=== PATIENT | female | born 1955 | race Two or more races ===

== ENCOUNTER 2017-09-06 10:36 | Outpatient (CLI) | payer OTHER ==
[~2017-09-06 10:36] MED LIST: DICLOZOR1 EACH; GLUMETZA1000 MG; NEURONTIN300 MG; VYTORIN 10-20 M1 TAB
== END 2017-09-06 10:42 | disposition home or self-care (01) ==
LOC: MAMO-SONO 10:36
DX: Z12.31 Encounter for screening mammogram for malignant neoplasm of breast (principal); Z87.898 Personal history of other specified conditions

== ENCOUNTER 2017-10-26 12:26 | Outpatient (CLI) | payer OTHER | END 2017-10-26 12:30 | disposition home or self-care (01) | LOC: RAD 12:26 | DX: D68.8 Other specified coagulation defects (principal); H25.9 Unspecified age-related cataract ==

== ENCOUNTER 2017-11-19 10:21 | Outpatient (CLI) | payer OTHER | END 2017-11-19 11:00 | disposition home or self-care (01) | LOC: NUCLEAR 10:21 | DX: M81.0 Age-related osteoporosis without current pathological fracture (principal) ==

== ENCOUNTER 2018-09-19 10:35 | Outpatient (CLI) | payer OTHER | END 2018-09-19 10:55 | disposition home or self-care (01) | LOC: MAMO-SONO 10:35 | DX: N61.0 Mastitis without abscess (principal); Z12.31 Encounter for screening mammogram for malignant neoplasm of breast ==

== ENCOUNTER → 2019-03-30 | Outpatient (CLI) | payer OTHER | END | disposition home or self-care (01) | LOC: RAD 16:32 | DX: J44.9 Chronic obstructive pulmonary disease, unspecified (principal); R10.84 Generalized abdominal pain ==

== ENCOUNTER 2019-09-20 09:25 | Outpatient (CLI) | payer OTHER | END 2019-09-20 09:40 | disposition home or self-care (01) | LOC: MAMO-SONO 09:25 | DX: Z12.31 Encounter for screening mammogram for malignant neoplasm of breast (principal); Z87.898 Personal history of other specified conditions; N60.11 Diffuse cystic mastopathy of right breast; N60.12 Diffuse cystic mastopathy of left breast ==

== ENCOUNTER 2020-01-23 11:33 | Outpatient (CLI) | payer OTHER | END 2020-01-23 11:35 | disposition home or self-care (01) | LOC: NUCLEAR 11:33 | PROVIDERS: ATTEND Obstetrics & Gynecology | DX: M81.0 Age-related osteoporosis without current pathological fracture (principal) ==

== ENCOUNTER 2020-02-14 11:22 | Outpatient (CLI) | payer OTHER | END 2020-02-14 11:30 | disposition home or self-care (01) | LOC: RAD 11:22 → MAMO-SONO 11:45 | PROVIDERS: ATTEND Internal Medicine Cardiovascular Disease | DX: M12.812 Other specific arthropathies, not elsewhere classified, left shoulder (principal); M12.811 Other specific arthropathies, not elsewhere classified, right shoulder ==

== ENCOUNTER → 2020-03-08 11:12 | Outpatient (CLI) | payer OTHER | END | disposition home or self-care (01) | LOC: EKG 11:12 | PROVIDERS: ATTEND Orthopaedic Surgery | DX: I10 Essential (primary) hypertension (principal) ==

== ENCOUNTER → 2020-03-08 | Outpatient (CLI) | payer OTHER | END | disposition home or self-care (01) | LOC: RAD 10:06 | PROVIDERS: ATTEND Orthopaedic Surgery | DX: R07.89 Other chest pain (principal); I10 Essential (primary) hypertension ==

== ENCOUNTER 2020-06-18 13:44 | Outpatient (CLI) | payer OTHER | END 2020-06-18 13:46 | disposition home or self-care (01) | LOC: RAD 13:44 | PROVIDERS: ATTEND Physical Medicine & Rehabilitation | DX: M75.122 Complete rotator cuff tear or rupture of left shoulder, not specified as traumatic (principal) ==

== ENCOUNTER 2020-07-16 07:48 | Outpatient (CLI) | payer OTHER | END 2020-07-16 07:50 | disposition home or self-care (01) | LOC: TOM 07:48 | PROVIDERS: ATTEND Obstetrics & Gynecology | DX: K57.90 Diverticulosis of intestine, part unspecified, without perforation or abscess without bleeding (principal); C54.1 Malignant neoplasm of endometrium; R10.2 Pelvic and perineal pain | CPT/HCPCS: 74177; Q9965 ==

== ENCOUNTER → 2020-07-23 | Outpatient (CLI) | payer OTHER | END | disposition home or self-care (01) | LOC: RAD 10:49 | DX: Z01.811 Encounter for preprocedural respiratory examination (principal) ==

== ENCOUNTER 2020-10-10 13:27 | Outpatient (CLI) | payer OTHER | END 2020-10-10 13:44 | disposition home or self-care (01) | LOC: MAMO-SONO 13:27 | PROVIDERS: ATTEND Obstetrics & Gynecology | DX: Z12.31 Encounter for screening mammogram for malignant neoplasm of breast (principal); Z87.898 Personal history of other specified conditions; N60.11 Diffuse cystic mastopathy of right breast; C54.0 Malignant neoplasm of isthmus uteri ==

== ENCOUNTER 2020-11-15 12:03 | Outpatient (CLI) | payer OTHER | END 2020-11-15 12:16 | disposition home or self-care (01) | LOC: SONOGRAMA 12:03 | PROVIDERS: ATTEND Surgery | DX: D24.2 Benign neoplasm of left breast (principal); N60.11 Diffuse cystic mastopathy of right breast; N60.12 Diffuse cystic mastopathy of left breast; R92.0 Mammographic microcalcification found on diagnostic imaging of breast ==

== ENCOUNTER 2021-07-23 07:51 | Outpatient (CLI) | payer OTHER | END 2021-07-23 08:00 | disposition home or self-care (01) | LOC: SONOGRAMA 07:51 | PROVIDERS: ATTEND Orthopaedic Surgery | DX: M75.121 Complete rotator cuff tear or rupture of right shoulder, not specified as traumatic (principal); M75.122 Complete rotator cuff tear or rupture of left shoulder, not specified as traumatic; M25.511 Pain in right shoulder; M25.512 Pain in left shoulder ==

== ENCOUNTER 2021-08-05 09:56 | Outpatient (CLI) | payer OTHER | END 2021-08-05 10:05 | disposition home or self-care (01) | LOC: MRI 09:56 | PROVIDERS: ATTEND Neuromusculoskeletal Medicine & OMM | DX: G25.0 Essential tremor (principal); R41.3 Other amnesia | CPT/HCPCS: 70551 ==

== ENCOUNTER 2021-10-30 10:20 | Outpatient (CLI) | payer OTHER | END 2021-10-30 10:33 | disposition home or self-care (01) | LOC: MAMO-SONO 10:20 | PROVIDERS: ATTEND Surgery | DX: N60.11 Diffuse cystic mastopathy of right breast (principal); N60.12 Diffuse cystic mastopathy of left breast ==

== ENCOUNTER → 2022-05-27 07:46 | Outpatient (CLI) | payer OTHER | END | disposition home or self-care (01) | LOC: LAB 07:46 | PROVIDERS: ATTEND Radiology Diagnostic Radiology | DX: C54.1 Malignant neoplasm of endometrium (principal) ==

== ENCOUNTER 2022-05-27 08:36 | Outpatient (CLI) | payer OTHER | END 2022-05-27 11:36 | disposition home or self-care (01) | LOC: TOM 08:36 | DX: C54.1 Malignant neoplasm of endometrium (principal) | CPT/HCPCS: 71260; 74177; Q9965 ==

== ENCOUNTER 2022-07-28 13:42 | Emergency (ER) | payer OTHER ==
[~2022-07-28] VITALS: Ht 154.9 cm; Wt 67.1 kg
== END 2022-07-28 20:13 | disposition home or self-care (01) ==
LOC: ER 13:42
DX: K52.9 Noninfective gastroenteritis and colitis, unspecified (principal)

== ENCOUNTER 2022-08-06 07:33 | Outpatient (CLI) | payer OTHER | END 2022-08-06 07:36 | disposition home or self-care (01) | LOC: NUCLEAR 07:33 | DX: C54.1 Malignant neoplasm of endometrium (principal) | CPT/HCPCS: 78816; A9552 ==

== ENCOUNTER 2022-11-02 09:17 | Outpatient (CLI) | payer OTHER | END 2022-11-02 09:31 | disposition home or self-care (01) | LOC: MAMO-SONO 09:17 | PROVIDERS: ATTEND Surgery | DX: N60.11 Diffuse cystic mastopathy of right breast (principal); N60.12 Diffuse cystic mastopathy of left breast ==

== ENCOUNTER → 2022-12-04 | Outpatient (CLI) | payer OTHER | END | disposition home or self-care (01) | LOC: TOM 08:51 | DX: C54.1 Malignant neoplasm of endometrium (principal) | CPT/HCPCS: 71260; 74177; Q9965 ==

== ENCOUNTER 2023-06-01 08:12 | Outpatient (CLI) | payer OTHER | END 2023-06-01 08:25 | disposition home or self-care (01) | LOC: TOM 08:12 | DX: C54.1 Malignant neoplasm of endometrium (principal) | CPT/HCPCS: 71260; 74177; Q9965 ==

== ENCOUNTER 2023-06-25 08:01 | Outpatient (CLI) | payer OTHER | END 2023-06-25 08:02 | disposition home or self-care (01) | LOC: NUCLEAR 08:01 | DX: C54.1 Malignant neoplasm of endometrium (principal) | CPT/HCPCS: 78815; A9552 ==

== ENCOUNTER 2023-10-20 13:09 | Outpatient (CLI) | payer OTHER | END 2023-10-20 13:11 | disposition home or self-care (01) | LOC: NUCLEAR 13:09 | PROVIDERS: ATTEND Internal Medicine Cardiovascular Disease | DX: M81.0 Age-related osteoporosis without current pathological fracture (principal); E55.9 Vitamin D deficiency, unspecified ==

== ENCOUNTER 2023-11-10 10:29 | Outpatient (CLI) | payer OTHER | END 2023-11-10 10:42 | disposition home or self-care (01) | LOC: MAMO-SONO 10:29 | PROVIDERS: ATTEND Surgery | DX: N60.11 Diffuse cystic mastopathy of right breast (principal); N60.12 Diffuse cystic mastopathy of left breast ==

== ENCOUNTER 2024-03-07 14:50 | Emergency (ER) | payer OTHER ==
[~2024-03-07] VITALS: Ht 154.9 cm; Wt 59.0 kg
[2024-03-07] MEDS ORDERED: 0.9 % SODIUM CHLORIDE 500 ML IV STA (18:07)
[2024-03-07 19:01] LABS: HEMATOCRIT 32.4 % (36.0-45.00); HEMOGLOBIN 11.5 g/dL (12.0-15.00); MEAN CELL VOLUME 90.2 fL (80.00-100.00); MEAN CORPUSCULAR HEMOGLOBIN 31.9 pg (27.00-32.0); MEAN CORPUSCULAR HGB CONC 35.4 g/dl (32.0-36.0); PLATELET COUNT 109 K/uL (150-450); RED BLOOD COUNT 3.59 M/uL (4.00-6.00); RED CELL DISTRIBUTION WIDTH 16.3 % (11.5-14.5)
[2024-03-07 19:20] LABS: PH,URINE 5.5 (5.0-8.0); URINE BILIRRUBIN Negative (NEGATIVE); URINE BLOOD Negative; URINE GLUCOSE Negative (NEGATIVE); URINE KETONE Negative (NEGATIVE); URINE LEUKOCYTE Negative; URINE NITRATE Negative; URINE UROBILINOGEN 0.2 E.U./dl
[2024-03-07 19:24] LABS: URINE BACTERIA 566.9 uL (0.0-1933); URINE CAST 1.98 uL (0.0-1.40); URINE EPITHELIAL CELLS 25.4 uL (0.0-38.8); URINE RBC 9.7 uL (0.0-20.8); URINE WBC 19.1 uL (0.0-23.2)
[2024-03-07 19:36] LABS: URINE COLOR DK YELLOW; URINE PROTEIN 100 (NEGATIVE)
[2024-03-07 19:37] LABS: URINE APPEARANCE CLEAR
[2024-03-07 19:56] LABS: ALBUMIN 3.3 gm/dL (3.4-5.0); BILIRUBIN TOTAL 0.31 mg/dL (0.3-1.2); CALCIUM 9.2 mg/dL (8.5-10.1); CREATININE SERUM 1.03 mg/dL (0.55-1.02); GFR 52.97; GLOBULINA 5.1 G/DL (2.4-3.5); POTASSIUM 3.47 mEq/L (3.5-5.1); TOTAL PROTEIN 8.4 gm/dL (6.4-8.2)
[2024-03-07] MEDS ORDERED: LEVOFLOXACIN750 MG PO (22:02)
== END 2024-03-07 22:36 | disposition home or self-care (01) ==
LOC: ER 14:51
PROVIDERS: General Practice
DX: R53.81 Other malaise (principal); R42 Dizziness and giddiness; I10 Essential (primary) hypertension; E11.9 Type 2 diabetes mellitus without complications; Z79.84 Long term (current) use of oral hypoglycemic drugs
CPT/HCPCS: 36415; 70450; 96365; 96366; 99284; J7042

== ENCOUNTER → 2024-03-09 11:57 | Outpatient (CLI) | payer OTHER ==
[~2024-03-09 11:57] MED LIST changes: +LEVOFLOXACIN750 MG PO
[2024-03-09 12:38] LABS: MEAN CELL VOLUME 90.3 fL (80.00-100.00); MEAN CORPUSCULAR HEMOGLOBIN 30.2 pg (27.00-32.0); MEAN CORPUSCULAR HGB CONC 33.5 g/dl (32.0-36.0); RED BLOOD COUNT 3.44 M/uL (4.00-6.00)
[2024-03-09 12:39] LABS: PLATELET COUNT 60 K/uL (150-450)
[2024-03-09 12:40] LABS: HEMOGLOBIN 10.4 g/dL (12.0-15.00)
== END | disposition home or self-care (01) ==
LOC: LAB 11:57
PROVIDERS: ATTEND General Practice
DX: D69.6 Thrombocytopenia, unspecified (principal)

== ENCOUNTER → 2024-03-10 12:58 | Outpatient (CLI) | payer OTHER ==
[2024-03-10 14:55] LABS: HEMOGLOBIN 10.7 g/dL (12.0-15.00); MEAN CELL VOLUME 91.2 fL (80.00-100.00); MEAN CORPUSCULAR HEMOGLOBIN 30.4 pg (27.00-32.0); MEAN CORPUSCULAR HGB CONC 33.4 g/dl (32.0-36.0); RED BLOOD COUNT 3.51 M/uL (4.00-6.00); RED CELL DISTRIBUTION WIDTH 15.9 % (11.5-14.5)
[2024-03-10 15:00] LABS: PLATELET COUNT 51 K/uL (150-450)
== END | disposition home or self-care (01) ==
LOC: LAB 12:58
PROVIDERS: ATTEND Emergency Medicine
DX: R42 Dizziness and giddiness (principal)

== ENCOUNTER 2024-08-29 08:34 | Outpatient (CLI) | payer OTHER | END 2024-08-29 08:35 | disposition home or self-care (01) | LOC: NUCLEAR 08:34 | DX: C54.1 Malignant neoplasm of endometrium (principal) | CPT/HCPCS: 78816; A9552 ==

== ENCOUNTER 2024-10-26 10:29 | Outpatient (CLI) | payer OTHER | END 2024-10-26 10:39 | disposition home or self-care (01) | LOC: TOM 10:29 | DX: C54.1 Malignant neoplasm of endometrium (principal) | CPT/HCPCS: 71270; 74178; Q9965 ==

== ENCOUNTER 2024-11-16 13:22 | Outpatient (CLI) | payer OTHER | END 2024-11-16 13:25 | disposition home or self-care (01) | LOC: MAMO-SONO 13:22 | PROVIDERS: ATTEND Surgery | DX: N60.11 Diffuse cystic mastopathy of right breast (principal); N60.12 Diffuse cystic mastopathy of left breast ==

== ENCOUNTER 2025-01-25 23:34 | Emergency (ER) | payer OTHER ==
[~2025-01-25] VITALS: Ht 134.6 cm; Wt 60.3 kg
[2025-01-26] MEDS ORDERED: ATORVASTATIN CA20 MG PO (00:01)
[2025-01-26] MEDS ORDERED: GLIMEPIRIDE2 M1 PO (00:01)
[2025-01-26] MEDS ORDERED: 0.9 % SODIUM CHLORIDE 1,000 ML IV STA (00:46)
[2025-01-26] MEDS ORDERED: FAMOtidine 10 MG/ML (4ML VIAL) IV PUSH STA (00:47)
[2025-01-26] MEDS ORDERED: METOCLOPRAMIDE HCL 5 MG/ML VIAL IM STA (00:48)
[2025-01-26] MEDS ORDERED: PROMETHAZINE HCL 50 MG/ML AMPUL IM STA (00:49)
[2025-01-26] MEDS ORDERED: METOCLOPRAMIDE HCL 5 MG/ML VIAL ONE (00:53)
[2025-01-26] MEDS ORDERED: FAMOTIDINE/PF 20 MG/2 ML VIAL ONE (00:53)
[2025-01-26] MEDS ORDERED: PROMETHAZINE HCL 50 MG/ML AMPUL IM ONE (00:53)
[2025-01-26 01:16] LABS: BASO % 0.2 % (0.1-1.2); EOS # 0.03 (0.04-0.54); EOS % 0.3 % (0.7-7.0); HEMATOCRIT 27.9 % (34.1-44.9); HEMOGLOBIN 9.3 g/dL (11.2-15.7); LYMPH % 5.4 % (19.3-53.1); MEAN CORPUSCULAR HEMOGLOBIN 27.7 pg (25.6-32.2); MONO # 0.43 (0.24-0.82); MONO % 3.9 % (4.7-12.5); NEUT # 9.99 (1.56-6.13); NEUT % 89.5 % (34.0-71.1); PLATELET COUNT 337 K/uL (163-369); RED BLOOD COUNT 3.36 M/uL (3.93-5.22); RED CELL DISTRIBUTION WIDTH 15.8 % (11.6-14.4)
[2025-01-26 01:32] LABS: ALBUMIN 2.8 gm/dL (3.4-5.0); BILIRUBIN TOTAL 0.49 mg/dL (0.3-1.2); CALCIUM 9.5 mg/dL (8.5-10.1); CREATININE SERUM 1.01 mg/dL (0.55-1.02); GFR 54.03; POTASSIUM 4.14 mEq/L (3.5-5.1); TOTAL PROTEIN 7.8 gm/dL (6.4-8.2)
[2025-01-26 01:35] LABS: PARTIAL THROMBOPLASTIN TIME 24.6 SECONDS (22.0-34.0); PROTHROMBIN TIME 10.9 SECONDS (9.0-11.5)
[2025-01-26 01:51] LABS: PH,URINE 5.5 (5.0-8.0); URINE APPEARANCE Clear; URINE BILIRRUBIN Negative (NEGATIVE); URINE BLOOD Negative; URINE COLOR Dark Yellow; URINE GLUCOSE Negative (NEGATIVE); URINE LEUKOCYTE Trace; URINE NITRATE Negative; URINE PROTEIN 30 (NEGATIVE); URINE UROBILINOGEN 0.2 E.U./dl
[2025-01-26 01:54] LABS: URINE BACTERIA 395.2 uL (0.0-1933); URINE RBC 18.5 uL (0.0-20.8); URINE WBC 27.8 uL (0.0-23.2)
[2025-01-26 01:59] LABS: URINE KETONE 40 (NEGATIVE)
[2025-01-26] MEDS ORDERED: CEFAZOLIN SODIUM 1,000 MG VIAL IV STA (02:54)
[2025-01-26] MEDS ORDERED: DIPHENOXYLATE HCL/ATROPINE 1 UDTAB TABLET PO STA (02:54)
[2025-01-26] MEDS ORDERED: CEFAZOLIN SODIUM 1,000 MG VIAL ONE (02:59)
== END 2025-01-26 04:45 | disposition home or self-care (01) ==
LOC: ER 23:34
DX: R10.9 Unspecified abdominal pain (principal); K52.89 Other specified noninfective gastroenteritis and colitis; I10 Essential (primary) hypertension; E11.9 Type 2 diabetes mellitus without complications; Z79.84 Long term (current) use of oral hypoglycemic drugs; K57.30 Diverticulosis of large intestine without perforation or abscess without bleeding
CPT/HCPCS: 36415; 74176; 96365; 96366; 96372; 99284; J0690; J2405; J3490; J7030